=== PATIENT | female | born 1985 | race Caucasian/White ===

== ENCOUNTER 2017-04-15 02:56 | Emergency (ER) | payer MEDICAID ==
[~2017-04-15] VITALS: Ht 162.6 cm; Wt 93.0 kg
[2017-04-15 07:43] VITALS: BP 95/65
[2017-04-15] MEDS ORDERED: ACETAMINOPHEN 500MG TABLET PO ONE (07:45)
[2017-04-15 08:10] LABS: CLARITY URINE CLEAR (CLEAR); COLOR URINE YELLOW (YELLOW); GLUCOSE URINE NEGATIVE (NEGATIVE); KETONES URINE 2+ (NEGATIVE); LEUKOCYTE ESTERASE URINE NEGATIVE (NEGATIVE); NITRITE URINE NEGATIVE (NEGATIVE); OCCULT BLOOD URINE NEGATIVE (NEGATIVE); PH URINE 5.5 (4.5-8.0); PROTEIN URINE NEGATIVE (NEGATIVE); SPECIFIC GRAVITY URINE 1.025 (1.005-1.030); UROBILINOGEN URINE 0.2 E.U./dL (0.2-1.0)
== END 2017-04-15 09:51 | disposition home or self-care (01) ==
LOC: ER 08:07
DX: J06.9 Acute upper respiratory infection, unspecified (principal); R51 Headache
CPT/HCPCS: 81003; 81025; 99283

== ENCOUNTER 2019-10-15 21:59 | Emergency (ER) | payer MEDICAID ==
[~2019-10-15] VITALS: Ht 167.6 cm; Wt 88.0 kg
[2019-10-15] MEDS ORDERED: LORAZEPAM 2MG/ML CPJ IM STA (23:28)
[2019-10-15] MEDS ORDERED: HALOPERIDOL LACTATE 5MG/ML VIAL IM STA (23:28)
[2019-10-16 00:08] LABS: BASOPHILS % 0.4 % (0.0-2.0); EOSINOPHILS % 0.4 % (0.0-5.0); HEMOGLOBIN. 14.8 g/dL (12.0-16.0); LYMPHOCYTES % 18.5 % (20.0-50.0); MEAN CORPUSCULAR HEMOGLOBIN 30.2 pg (28.0-32.0); MEAN PLATELET VOLUME 8.1 fl (7.4-10.4); MONOCYTES % 6.9 % (2.0-8.0); NEUTROPHILS % 73.8 % (40.0-76.0); PLATELET 229 x1000/uL (130-400); RED BLOOD CELL COUNT 4.89 mill/uL (4.2-5.4); RED CELL DISTRIBUTION WIDTH 13.9 % (11.6-14.6)
[2019-10-16 00:26] LABS: CHLORIDE 110 mEq/L (98-107)
[2019-10-16 00:30] LABS: ETHANOL BLOOD < 10 mg/dL
[2019-10-16 02:58] LABS: CLARITY URINE CLEAR (CLEAR); COLOR URINE YELLOW (YELLOW); KETONES URINE TRACE (NEGATIVE); LEUKOCYTE ESTERASE URINE NEGATIVE (NEGATIVE); NITRITE URINE NEGATIVE (NEGATIVE); OCCULT BLOOD URINE NEGATIVE (NEGATIVE); PH URINE 6.5 (4.5-8.0); PROTEIN URINE NEGATIVE (NEGATIVE)
[2019-10-16 03:24] LABS: *AMPHETAMINES SCREEN URINE NEGATIVE (NEGATIVE); *BARBITURATES SCREEN URINE NEGATIVE (NEGATIVE); *BENZODIAZEPINES SCREEN URINE NEGATIVE (NEGATIVE); *COCAINE SCREEN URINE NEGATIVE (NEGATIVE); OPIATES URINE SCREEN NEGATIVE (NEGATIVE); PHENCYCLIDINE URINE SCREEN NEGATIVE (NEGATIVE)
[2019-10-16 03:26] LABS: CANNABINOID URINE SCREEN PRESUMTIVE POSITIVE (NEGATIVE)
[2019-10-16] MEDS ORDERED: ACETAMINOPHEN 325MG TABLET PO ONE (11:00)
[2019-10-16] MEDS ORDERED: LORAZEPAM 2MG/ML CPJ IM ONE (13:00)
[2019-10-16] MEDS ORDERED: HALOPERIDOL LACTATE 5MG/ML VIAL IM NR (13:45)
[2019-10-16] MEDS: IBUPROFEN 200MG TABLET PO NR ×2 (15:36→16:40)
[2019-10-16 15:44] LABS: METHADONE URINE SCREEN NEGATIVE (NEGATIVE)
[2019-10-16 18:12] VITALS: BP 111/83
== END 2019-10-16 18:27 ==
LOC: ER 21:59
DX: F99 Mental disorder, not otherwise specified (principal); F91.8 Other conduct disorders; R45.851 Suicidal ideations; Z98.890 Other specified postprocedural states; Z75.1 Person awaiting admission to adequate facility elsewhere
CPT/HCPCS: 36415; 80053; 80305; 80320; 81003; 85025; 96372; 99285; J1630; J2060; G0480